=== PATIENT | male | born 2000 | race Caucasian/White ===

== ENCOUNTER → 2025-06-14 | Outpatient (REF) | payer OTHER ==
[2025-06-14 17:40] LABS: BASO # 0.0 10^3/uL (0.0-0.2); BASO % 0.5 % (0.0-1.0); EOS # 0.1 10^3/uL (0.0-0.5); EOS % 2.1 % (0.0-3.0); LYMPH # 2.1 10^3/uL (1.5-5.0); LYMPH % 37.0 % (24.0-44.0); MONO # 0.5 10^3/uL (0.0-0.8); MONO % 8.1 % (2.0-8.0); NEUTROPHILS # 3.0 10^3/uL (1.5-8.5); NEUTROPHILS % 52.1 % (36.0-66.0); PLATELET COUNT, AUTOMATED 295 10^3/uL (150-450)
[2025-06-14 18:03] LABS: ALT/SGPT 31 U/L (7.0-40); AST/SGOT 17 U/L (<34); CALCIUM LEVEL 9.6 MG/DL (8.5-10.1); CARBON DIOXIDE LEVEL 29 MMOL/L (20-31); CHLORIDE LEVEL 103 MMOL/L (98-107); CHOLESTEROL LEVEL 189 MG/DL (<200); CHOLESTEROL RISK RATIO 4.64 (<5); CREATININE FOR GFR 0.92 MG/DL (0.70-1.30); GLOMERULAR FILTRATION RATE > 90.0 (>60); IRON (FE) 103 UG/DL (65-175); LDL CHOLESTEROL 136.1 MG/DL (<100); NON-HDL-C 148.3 MG/DL; POTASSIUM SERUM 4.5 MMOL/L (3.5-5.1); SODIUM LEVEL 144 MMOL/L (136-145); TRIGLYCERIDES LEVEL 61 MG/DL (<150)
[2025-06-14 19:07] LABS: ESTIMATED AVERAGE GLUCOSE 97.0 MG/DL (60-110)
== END ==
LOC: M LAB REF 16:31
PROVIDERS: ATTEND Student in an Organized Health Care Education/Training Program
DX: R53.83 Other fatigue (principal); Z68.28 Body mass index [BMI] 28.0-28.9, adult

== ENCOUNTER 2025-06-23 21:40 | Emergency (ER) | payer OTHER ==
[2025-06-23 22:03] VITALS: TEMP 98.3
[2025-06-23 22:27] LABS: BASO # 0.1 10^3/uL (0.0-0.2); BASO % 0.6 % (0.0-1.0); EOS # 0.2 10^3/uL (0.0-0.5); EOS % 1.6 % (0.0-3.0); LYMPH # 2.3 10^3/uL (1.5-5.0); LYMPH % 22.6 % (24.0-44.0); MONO # 0.8 10^3/uL (0.0-0.8); MONO % 8.0 % (2.0-8.0); NEUTROPHILS # 6.7 10^3/uL (1.5-8.5); NEUTROPHILS % 66.8 % (36.0-66.0); PLATELET COUNT, AUTOMATED 292 10^3/uL (150-450)
[2025-06-23 22:57] LABS: CK-MB VALUE MASS 2.0 NG/ML (<3.6)
[2025-06-23 22:58] LABS: CALCIUM LEVEL 9.2 MG/DL (8.5-10.1); CARBON DIOXIDE LEVEL 27 MMOL/L (20-31); CHLORIDE LEVEL 102 MMOL/L (98-107); CREATININE FOR GFR 0.98 MG/DL (0.70-1.30); GLOMERULAR FILTRATION RATE > 90.0 (>60); POTASSIUM SERUM 3.6 MMOL/L (3.5-5.1); SODIUM LEVEL 141 MMOL/L (136-145)
[2025-06-23 23:00] LABS: CPK CREATINE PHOSPHOKINASE 120 U/L (46-171); MB/CK RELATIVE INDEX 1.66 (< OR =4)
[2025-06-23 23:47] LABS: CK-MB VALUE MASS 2.0 NG/ML (<3.6)
[2025-06-23 23:53] LABS: CPK CREATINE PHOSPHOKINASE 116 U/L (46-171); MB/CK RELATIVE INDEX 1.72 (< OR =4)
[2025-06-24 00:17] VITALS: BP 123/66
[2025-06-24 01:40] VITALS: O2SAT 99
== END 2025-06-24 02:05 | disposition home or self-care (01) ==
LOC: EDBD 21:40 → M ED 21:40
DX: R07.9 Chest pain, unspecified (principal); I48.91 Unspecified atrial fibrillation; I10 Essential (primary) hypertension

== ENCOUNTER → 2025-06-28 | Outpatient (REF) | payer OTHER | LOC: M LAB REF 16:25 | PROVIDERS: ATTEND Student in an Organized Health Care Education/Training Program | DX: R53.83 Other fatigue (principal); R51.9 Headache, unspecified; G89.29 Other chronic pain ==